=== PATIENT | female | born 1965 | race Caucasian/White ===

== ENCOUNTER → 2020-02-03 12:11 | Outpatient (CLI) | payer BC, SELFPAY ==
[2020-02-03 13:14] LABS: Adenovirus,PCR Not Detected (NotDetected); Bordetella Pertussis Not Detected (NotDetected); Chlamydophila Pneumoniae, PCR Not Detected (NotDetected); Coronavirus 229E Not Detected (NotDetected); Coronavirus NL63 Not Detected (NotDetected); Coronavirus OC43 Not Detected (NotDetected); Coronovirus HKU1,PCR Not Detected (NotDetected); Human Metapneumovirus Not Detected (NotDetected); Influenza A, PCR Not Detected (NotDetected); Influenza AH1, 2009 Not Detected (NotDetected); Influenza AH1, PCR Not Detected (NotDetected); Influenza AH3,PCR Not Detected (NotDetected); Influenza B, PCR Not Detected (NotDetected); Mycoplasma Pneumoniae, PCR Not Detected (NotDetected); Parainfluenza 1, PCR Not Detected (NotDetected); Parainfluenza 2, PCR Not Detected (NotDetected); Parainfluenza 3, PCR Not Detected (NotDetected); Parainfluenza 4, PCR Not Detected (NotDetected); Respiratory Syncytial Virus Not Detected (NotDetected); Rhinovirus/Enterovirus Not Detected (NotDetected)
[2020-02-03 13:22] LABS: Basophils # 0.1 K/mm3 (0-0.2); Basophils % 0.8 % (0.1-2.0); Eosinophils # 0.2 K/mm3 (0.0-0.4); Eosinophils % 2.4 % (0.1-12.0); Hematocrit 43.5 % (37.0-47.0); Hemoglobin 15.2 g/dL (12.2-16.2); Lymphocytes # 2.4 K/mm3 (0.7-4.5); Lymphocytes % 27.9 % (10-50); Mean Corpuscular HGB Conc 34.9 g/dL (31.8-35.4); Mean Corpuscular Hemoglobin 29.7 pg (27.0-31.2); Mean Platelet Volume 8.4 fl (7.4-10.4); Monocytes # 0.3 K/mm3 (0.1-1.0); Monocytes % 3.4 % (1.7-9.3); Neutrophils # 5.6 K/mm3 (1.8-7.8); Neutrophils % 65.6 % (37.0-80.0); Platelet Count 231 K/mm3 (142-424); Red Blood Count 5.12 M/mm3 (4.20-5.40); Red Cell Distribution Width 13.7 % (11.5-17.5); White Blood Count 8.6 K/mm3 (4.8-10.8)
[2020-02-03 13:25] LABS: Strep Scrn Group A (Rapid) Negative (Negative)
[2020-02-03 17:19] LABS: Coronavirus 19 IgG Antibody Negative (Negative); Coronavirus 19 IgM Antibody Negative (Negative)
[2020-02-04 15:17] LABS: Covid-19 Nasal PCR Sendout Lex Not Detected
== END ==
PROVIDERS: PCP Family Medicine; Visit Provider Nurse Practitioner
DX: Z01.84 Encounter for antibody response examination (principal)
CPT/HCPCS: 36415; 85025; 86328; 87430; 87486; 87581; 87633; 87798; U0004

== ENCOUNTER → 2020-04-15 08:47 | Outpatient (CLI) | payer BC, SELFPAY ==
[2020-04-15 09:29] LABS: Basophils # 0.1 K/mm3 (0-0.2); Basophils % 0.5 % (0.1-2.0); Eosinophils # 0.1 K/mm3 (0.0-0.4); Eosinophils % 0.7 % (0.1-12.0); Hematocrit 40.8 % (37.0-47.0); Hemoglobin 14.2 g/dL (12.2-16.2); Lymphocytes # 1.7 K/mm3 (0.7-4.5); Lymphocytes % 16.3 % (10-50); Mean Corpuscular HGB Conc 34.8 g/dL (31.8-35.4); Mean Corpuscular Hemoglobin 29.2 pg (27.0-31.2); Mean Platelet Volume 7.7 fl (7.4-10.4); Monocytes # 0.8 K/mm3 (0.1-1.0); Monocytes % 7.5 % (1.7-9.3); Neutrophils # 7.9 K/mm3 (1.8-7.8); Platelet Count 236 K/mm3 (142-424); Red Blood Count 4.86 M/mm3 (4.20-5.40); Red Cell Distribution Width 13.2 % (11.5-17.5); White Blood Count 10.5 K/mm3 (4.8-10.8)
[2020-04-16 13:22] LABS: Covid-19 Nasal PCR Sendout Lex NOT DETECTED
== END ==
PROVIDERS: PCP Family Medicine; Visit Provider Family Medicine
DX: Z03.818 Encounter for observation for suspected exposure to other biological agents ruled out (principal)
CPT/HCPCS: 36415; 85025; U0004

== ENCOUNTER 2020-12-19 13:16 | Emergency (ER) | payer BC, SELFPAY ==
[2020-12-19 13:18] VITALS: BP 139/83; PULSE 70; RESP 16; TEMP 36.6; O2SAT 98; BMI 36.6
--- NOTE | 2020-12-19 13:22 | ECG_ITS ---
APPROVED REPORT Exam: Resting ECG HR:68 bpm ECG Measurements Heart Rate 68 AXES DC 170 P 35 QRSd 80 QRS 106 QT 412 T 70 QTc 438 Conclusion Normal sinus rhythm Rightward axis Borderline ECG Electronically signed by : Raghavendra Hart, 12/19/2020 20:25:40
--- NOTE | 2020-12-19 13:28 | XR_ITS ---
PROCEDURE INFORMATION: Exam: XR Chest Exam date and time: 12/19/2020 1:28 PM Age: 55 years old Clinical indication: Shortness of breath and other: Nausea, generalized weakness; Patient HX: Generalized weakness, smoker, nausea TECHNIQUE: Imaging protocol: XR of the chest. Views: 1 view. COMPARISON: No relevant prior studies available. FINDINGS: Lungs: Unremarkable. No consolidation. Pleural spaces: Unremarkable. No pleural effusion. No pneumothorax. Heart/Mediastinum: Unremarkable. No cardiomegaly. Bones/joints: Unremarkable. IMPRESSION: No acute findings.
[2020-12-19 13:30] LABS: POC Glucose,Bedside 109 (70-110)
[2020-12-19 13:31] VITALS: BP 127/78; PULSE 60; RESP 13; O2SAT 99
--- NOTE | 2020-12-19 13:37 | PC.NURSE ---
Radiology at bedside.
--- NOTE | 2020-12-19 13:43 | [facility].EDGENADL ---
ED Disposition Clinical Impression: Hot flashes, Lightheadedness Disposition: Home, Self-Care Condition on Discharge: Good Additional Instructions: Return to the emergency department if symptoms worsen. Referrals: Provider,Referral, [Primary Care Provider] - - Critical Care Critical Care Time: No Attestation: On 12/19/20, the high probability of a clinically significant, sudden or life threatening deterioration of the following system(s) required my full and direct attention, intervention and personal management. The time I documented below is in addition to time spent performing reported procedures but includes the following listed in this critical care notation. Medical Decision Making - Fred Inquiry Pt receiving controlled substance: No Vital Signs: 12/19/20 13:18 12/19/20 13:31 12/19/20 13:46 Temperature 98 F Temperature Source Oral Pulse Rate 60 69 Pulse Rate [Radial] 70 Respiratory Rate 16 13 22 Blood Pressure 127/78 123/75 Blood Pressure [Right Radial Artery] 139/83 Blood Pressure Mean 94 85 Blood Pressure Mean [Right Radial Artery] 101 Blood Pressure Position [Right Radial Artery] Sitting 02 Sat by Pulse Oximetry 98 99 99 Oxygen Delivery Method Room Air - Lab Data Lab Results 12/19/20 13:21: POC Glucose 109 12/19/20 13:34: WBC 9.6, RBC 5.57 H, Hgb 15.9, Hct 47.0, MCV 84.3, MCH 28.5, MCHC 33.8, RDW 13.4, Plt Count 298, MPV 7.6, Neut % (Auto) 76.0, Lymph % (Auto) 18.2, [place] % (Auto) 3.7, Eos % (Auto) 1.4, Baso % (Auto) 0.7, Neut # (Auto) 7.3, Lymph # (Auto) 1.7, [place] # (Auto) 0.4, Eos # (Auto) 0.1, Baso # (Auto) 0.1 12/19/20 13:34: Sodium 139, Potassium 3.7, Chloride 104, Carbon Dioxide 24, Anion Gap 14.7, BUN 19 H, Creatinine 0.80, Estimated Creat Clear 116, Estimated GFR 75, Est GFR ( Amer) 91, Glucose 114 H, Calcium 10.1, Total Bilirubin 0.6, AST 31, ALT 26, Alkaline Phosphatase 120, Troponin I < 0.01, Total Protein 8.0, Albumin 4.7, Globulin 3.3 H, Albumin/Globulin Ratio 1.4 12/19/20 13:52: Urine Color Yellow, Urine Appearance Clear, Urine pH 6.0, Ur Specific [place] 1.010, Urine Protein Negative, Urine Glucose (UA) Negative, Urine Ketones Negative, Urine Blood Negative, Urine Nitrate Negative, Urine Bilirubin Negative, Urine Urobilinogen 0.2, Ur Leukocyte Esterase Negative, Urine RBC None, Urine WBC None, Ur Squamous Epith Cells 3-5, Urine Bacteria None Result diagrams: 12/19/20 13:34 12/19/20 13:34 Orders (Tests/Meds): ORDERS Category Date Time Status Troponin I Q3H Lab 12/19/20 16:30 Ordered Troponin I Q3H Lab 12/19/20 19:30 Ordered - Radiology Data #1 Image(s): Chest Image Reviewed: Yes I reviewed the patient's radiology image, Yes I have reviewed radiologist's interpretation PROCEDURE INFORMATION: Exam: XR Chest Exam date and time: 12/19/2020 1:28 PM Age: 55 years old Clinical indication: Shortness of breath and other: Nausea, generalized weakness; Patient HX: Generalized weakness, smoker, nausea TECHNIQUE: Imaging protocol: XR of the chest. Views: 1 view. COMPARISON: No relevant prior studies available. FINDINGS: Lungs: Unremarkable. No consolidation. Pleural spaces: Unremarkable. No pleural effusion. No pneumothorax. Heart/Mediastinum: Unremarkable. No cardiomegaly. Bones/joints: Unremarkable. IMPRESSION: No acute findings. - ECG Data Tracing #1 EKG interpreted by Dash Castano MD: Rhythm: sinus Rate: 68 [place]: Rightward Ectopy: none Conduction: normal ST Segment Changes: none T Wave Changes: none Q Waves: none Poor R wave progression No evidence of acute ischemia or injury - Reevaluation(s) Time: 15:38 Reevaluation #1: Drink fluids in the ED. States she feels 100% better now and is ready to go home. General Adult HPI - General Chief complaint: Weakness Stated complaint: chills, dizzy, nausea Time Seen by
[2020-12-19 13:46] VITALS: BP 123/75; PULSE 69; RESP 22; O2SAT 99
[2020-12-19 13:46] LABS: Basophils # 0.1 K/mm3 (0-0.2); Basophils % 0.7 % (0.1-2.0); Eosinophils # 0.1 K/mm3 (0.0-0.4); Eosinophils % 1.4 % (0.1-12.0); Hemoglobin 15.9 g/dL (12.2-16.2); Lymphocytes # 1.7 K/mm3 (0.7-4.5); Lymphocytes % 18.2 % (10-50); Mean Corpuscular HGB Conc 33.8 g/dL (31.8-35.4); Mean Corpuscular Hemoglobin 28.5 pg (27.0-31.2); Mean Corpuscular Volume 84.3 fl (81-99); Mean Platelet Volume 7.6 fl (7.4-10.4); Monocytes # 0.4 K/mm3 (0.1-1.0); Monocytes % 3.7 % (1.7-9.3); Neutrophils # 7.3 K/mm3 (1.8-7.8); Platelet Count 298 K/mm3 (142-424); Red Blood Count 5.57 M/mm3 (4.20-5.40); Red Cell Distribution Width 13.4 % (11.5-17.5); White Blood Count 9.6 K/mm3 (4.8-10.8)
[2020-12-19 13:49] LABS: Chloride 104 mmol/L (98-107); Potassium 3.7 mmoL/L (3.5-5.1); Sodium 139 mmol/L (136-145)
[2020-12-19 13:52] LABS: Alanine Aminotransferase 26 U/L (12-78); Albumin Level 4.7 g/dl (3.5-5.0); Albumin/Globulin Ratio 1.4 (1.1-1.8); Alkaline Phosphatase 120 U/L (38-126); Anion Gap 14.7 mEq/L (5-15); Aspartate Amino Transferase 31 U/L (14-36); Bilirubin,Total 0.6 mg/dl (0.2-1.3); Blood Urea Nitrogen 19 mg/dl (7-17); Carbon Dioxide 24 mmol/L (22.0-30.0); Creatinine Clearance Estimated 116 mL/min (50-200); Estimated Glomerular Filt Rate 75 ml/min (>60); GFR (African American) 91 ML/MIN (>60); Globulin 3.3 g/dL (1.3-3.2)
[2020-12-19 13:53] LABS: Calcium 10.1 mg/dl (8.4-10.2); Glucose 114 mg/dl (74-100)
--- NOTE | 2020-12-19 14:00 | PC.NURSE ---
up to bathroom with assistance, felt weak and shaky, color pale
[2020-12-19 14:16] LABS: Troponin I < 0.01 ng/ml (0.00-0.034)
--- NOTE | 2020-12-19 14:17 | PC.NURSE ---
pt up to bathroom
--- NOTE | 2020-12-19 14:19 | PC.NURSE ---
[facility] report given to
[2020-12-19 14:32] LABS: Microscopic, Urine URINE MICROSCOPIC (MICROSCOPIC)
[2020-12-19 14:42] LABS: Appearance,Urine CLEAR (Clear); Bilirubin,Urine Negative (Negative); Blood, Urine Negative (Negative); Color,Urine YELLOW (Yellow); Glucose,Urine (UA) Negative (Negative); Ketones,Urine Negative (Negative); Leukocyte Esterase,Urine Negative (Negative); Nitrate,Urine Negative (Negative); Protein,Urine Negative (Negative); Urobilinogen,Urine 0.2 EU/dl (0.2)
[2020-12-19 16:03] VITALS: BP 127/78; PULSE 97; RESP 16; O2SAT 95
[2020-12-19 16:44] VITALS: BP 132/74; PULSE 78; RESP 16; TEMP 36.6; O2SAT 98
== END 2020-12-19 16:45 | disposition home or self-care (01) ==
PROVIDERS: Emergency Provider Emergency Medicine
DX: R42 Dizziness and giddiness (principal); R23.2 Flushing; R11.0 Nausea; F17.210 Nicotine dependence, cigarettes, uncomplicated
CPT/HCPCS: 71045; 80053; 81001; 82962; 84484; 85025; 93005; 99282